=== PATIENT | female | born 1935 | race Caucasian/White ===

== ENCOUNTER 2022-09-10 12:51 | Inpatient (IN) | payer MEDICARE, OTHER ==
[~2022-09-10] VITALS: Ht 149.9 cm; Wt 54.4 kg
--- NOTE | 2022-09-10 13:00 | NUR ---
RECEIVED PT 87 YRS FEMALE AWAKE FALLOW COMAND FOR MEDICALE CLEAR FOR PSCHY awake fallow command
--- NOTE | 2022-09-10 13:30 | NUR ---
PT ON 5151 FOR GRAVELY DISABLE ADULT
--- NOTE | 2022-09-10 13:35 | NUR ---
PT AGATTADE UNCOOPRATIVE
--- NOTE | 2022-09-10 13:57 | NUR ---
BLOOD DROW BY LAB TACH
--- NOTE | 2022-09-10 13:58 | NUR ---
UA SENT TO LAB
--- NOTE | 2022-09-10 14:25 | NUR ---
RAZ BONILLA SENT TO LAB
[2022-09-10] MEDS ORDERED: HALOPERIDOL LACTATE INJ 5 MG/ML VIAL IM ONE (14:30)
[2022-09-10] MEDS ORDERED: LORAZEPAM INJ 2 MG/ML VIAL ONE (14:30)
[2022-09-10] MEDS ORDERED: LORAZEPAM INJ 2 MG/ML VIAL IM ONE (14:30)
[2022-09-10 14:33] LABS: BASOPHILS % (AUTO) 0.3 % (0.0-2.0); EOSINOPHILS % (AUTO) 2.2 % (0.0-6.0); HEMATOCRIT 40 % (33-45); HEMOGLOBIN 13.3 g/dL (11.5-14.8); LYMPHOCYTES # (AUTO) 1.9 K/uL (0.8-4.8); LYMPHOCYTES % (AUTO) 24.7 % (20.0-44.0); MEAN CORPUSCULAR HGB CONC 33 g/dl (31.0-36.0); MEAN CORPUSCULAR VOLUME 98 fL (82-100); MONOCYTES # (AUTO) 0.4 K/uL (0.1-1.30); MONOCYTES % (AUTO) 5.2 % (2.0-12.0); NEUTROPHILS # (AUTO) 5.2 K/uL (1.8-8.9); NEUTROPHILS % (AUTO) 67.6 % (43.0-81.0); PLATELET COUNT (AUTO) 324 K/uL (150-450); RED BLOOD CELL COUNT(AUTO) 4.09 MIL/uL (4.0-5.2); WHITE BLOOD COUNT (AUTO) 7.7 K/uL (4.3-11.0)
[2022-09-10] MEDS ORDERED: FLUT1BLS6 IH (14:44)
[2022-09-10] MEDS ORDERED: ALBU1.257 NEB (14:44)
[2022-09-10] MEDS ORDERED: DICL75TA5 PO (14:44)
[2022-09-10] MEDS ORDERED: CHOL100043 PO (14:44)
[2022-09-10] MEDS ORDERED: MULT-447 PO (14:44)
[2022-09-10] MEDS ORDERED: AMLO1CAP6 PO (14:44)
[2022-09-10] MEDS ORDERED: VITA1TAB56 PO (15:06)
[2022-09-10] MEDS ORDERED: ASPI-1169 PO (15:06)
[2022-09-10] MEDS ORDERED: TURM500C9 PO (15:06)
[2022-09-10] MEDS ORDERED: ZINC50TA39 PO (15:06)
[2022-09-10] MEDS ORDERED: ACET-2605 PO (15:06)
[2022-09-10] MEDS ORDERED: HYDR453.3 TP (15:06)
[2022-09-10] MEDS ORDERED: [UNRECOGNIZED DRUG - CODE] PO (15:06)
[2022-09-10] MEDS ORDERED: ONDA4TAB11 PO (15:06)
[2022-09-10] MEDS ORDERED: CALC1TAB30 PO (15:06)
[2022-09-10] MEDS ORDERED: GARL1TAB2 PO (15:06)
[2022-09-10] MEDS ORDERED: OMEG1CAP PO (15:06)
[2022-09-10] MEDS ORDERED: DICL100G26 TP (15:06)
[2022-09-10] MEDS ORDERED: PHEN26CR2 RC (15:06)
[2022-09-10] MEDS ORDERED: DESL5TAB PO (15:06)
[2022-09-10 15:13] LABS: ALBUMIN 3.7 g/dL (3.4-5.0); BILIRUBIN,DIRECT 0.1 mg/dL (0.0-0.2); BILIRUBIN,TOTAL 0.3 mg/dL (0.2-1.0); CALCIUM, SERUM 9.6 mg/dL (8.5-10.1); POTASSIUM 4.1 mmol/L (3.5-5.1); TOTAL PROTEIN, SERUM 7.1 g/dL (6.4-8.2)
[2022-09-10] MEDS ORDERED: ONDANSETRON 4 MG TAB.RAPDIS PO PRN ×2 (15:30→15:45)
[2022-09-10] MEDS ORDERED: ACETAMINOPHEN ES 500 MG TABLET PO PRN (15:30)
[2022-09-10] MEDS ORDERED: HYDROCORTISONE 2.5% CREAM 28.4 GM TUBE TP PRN ×2 (15:30→15:45)
--- NOTE | 2022-09-10 15:46 | NUR ---
ROOM 218 A
--- NOTE | 2022-09-10 16:21 | NUR ---
VS STABLE NO HOLT
--- NOTE | 2022-09-10 16:35 | NUR ---
HAND OFF MANNY. Marialuisa RN TO ROOM 218 A VIA [facility] ASLEEPY NO DISTRESS
--- NOTE | 2022-09-10 17:09 | NUR ---
RN-CO: Admitted an 87 year old female patient from [facility] who was brought by daughter Joanna to [facility] ED. Per hold patient is non compliant, aggressive and paranoid. She thinks that people are stealing from her. Upon face to face interview, she is alert to name, and date. She is angry with pressured speech. Her affect is is blunted and she denied being depressed and upset, however when she talks she is irritable. She refused to sign the admitting orders, staff screened her belongings from [facility]. Dr Encinas was notified and gave admitting orders. Tammy [facility] ENER[facility] RATER reconciled her home medications. Joanna her daughter [phone] is aware of her admission. Patient's rights were discussed to her and booklet was given. She was oriented to the unit and staff. Plan of care was initiated.
--- NOTE | 2022-09-10 17:19 | NUR ---
RN-CO: Patient was encouraged to use walker and to call for assist.
[2022-09-10 19:46] VITALS: BP 120/52
--- NOTE | 2022-09-10 20:55 | NUR ---
NURSE NOTE: OFFERED PT PNEUMONIA AND FLU VACCINE AND PT REFUSED AT THIS TIME.
[2022-09-11 08:00] VITALS: BP 137/78
[2022-09-11] MEDS: ZINC SULFATE 220 MG CAPSULE PO SCH (08:54)
[2022-09-11] MEDS: DICLOFENAC SODIUM 25 MG TABLET.DR PO SCH ×2 (08:54→17:26)
[2022-09-11] MEDS: VITAMIN B COMP W-C 1 TAB TABLET PO SCH (08:54)
[2022-09-11] MEDS: BENAZEPRIL HCL 20 MG TABLET PO SCH (08:55)
[2022-09-11] MEDS: CHOLECALCIFEROL 1,000 UNIT TABLET (VIT D3) PO SCH (08:55)
[2022-09-11] MEDS: CALCIUM CARB 250MG /VITAMIN D 1 UDTAB PO SCH (08:55)
[2022-09-11] MEDS: ASPIRIN 81 MG TAB.CHEW PO SCH (08:56)
[2022-09-11] MEDS: AMLODIPINE BESYLATE 5 MG TABLET PO SCH (08:56)
[2022-09-11] MEDS ORDERED: ASPIRIN 81 MG TAB.CHEW PO SCH (09:00)
[2022-09-11] MEDS ORDERED: TURMERIC ROOT EXTRACT PO SCH (09:00)
[2022-09-11] MEDS ORDERED: Medication Not On Formulary EA (Omega-3 Fatty Acids/Fish Oil (Fish Oil 1,000 Mg Capsule) PO SCH (09:00)
--- NOTE | 2022-09-11 14:22 | NUR ---
Treatment Plan: Pt refused to sign treatment plan and was suspicious.
--- NOTE | 2022-09-11 14:22 | NUR ---
SOTERO Clinical Notes: Pt placed on a 5150 hold for GD due to being aggressive at her assisted living. Patient currently resides at [facility] located at [address] [place] [address]; . SOTERO contacted [facility] medication care manager stated that pt is welcomed back when stable. She stated family will provide transportation. SOTERO will contact pt's daughter Joanna ([phone]) to discuss treatment/discharge plan. SOTERO will work with the MD, family, and pt to help coordinate appropriate discharge.
--- NOTE | 2022-09-11 14:22 | NUR ---
SOTERO Initial Discharge Plan: Patient currently resides at [facility] located at [address] [place] [address]; . SOTERO contacted [facility] childcare provider stated that pt is welcomed back when stable. She stated family will provide transportation. SOTERO will contact pt's daughter Joanna ([phone]) to discuss treatment/discharge plan. SOTERO will work with the MD, family, and pt to help coordinate appropriate discharge.
--- NOTE | 2022-09-11 15:49 | NUR ---
SOTERO Family Contact: SOTERO contacted pt's daughter Joanna ([phone]) who stated that she is the DPOA and will Email this global technical writer the document. She stated that she would want pt back to [facility]. She stated that has been refusing her medications at [facility] and has days where she is in a manic state. SOTERO explained pt's treatment and discharge plan. Daughter stated that pt is on herbs and vitamins she reported she will Email me a list of the vitamins and herbs. SOTERO will inform nurse when received. SOTERO explained that this global technical writer receives Emails at a later time she stated it is fine and this global technical writer can let the nurse know by tomorrow.
[2022-09-11 16:00] VITALS: BP 121/59
[2022-09-11 20:41] VITALS: BP 110/57
[2022-09-11] MEDS: OLANZAPINE 2.5 MG TABLET PO SCH (21:28)
[2022-09-12 08:00] VITALS: BP 145/71
[2022-09-12] MEDS: AMLODIPINE BESYLATE 5 MG TABLET PO SCH (08:57)
[2022-09-12] MEDS: cetrizine 10 MG TABLET PO SCH (08:58)
[2022-09-12] MEDS: ASPIRIN 81 MG TAB.CHEW PO SCH (08:58)
[2022-09-12] MEDS: ZINC SULFATE 220 MG CAPSULE PO SCH (08:58)
[2022-09-12] MEDS: DICLOFENAC SODIUM 25 MG TABLET.DR PO SCH ×2 (08:59→17:24)
[2022-09-12] MEDS: CHOLECALCIFEROL 1,000 UNIT TABLET (VIT D3) PO SCH (08:59)
[2022-09-12] MEDS: VITAMIN B COMP W-C 1 TAB TABLET PO SCH (09:00)
[2022-09-12] MEDS: BENAZEPRIL HCL 20 MG TABLET PO SCH (09:00)
[2022-09-12] MEDS: CALCIUM CARB 250MG /VITAMIN D 1 UDTAB PO SCH (09:00)
[2022-09-12 16:00] VITALS: BP 129/75
[2022-09-12 20:33] VITALS: BP 105/51
[2022-09-12] MEDS: OLANZAPINE 2.5 MG TABLET PO SCH ×3 (21:02→22:03)
[2022-09-13 08:00] VITALS: BP 114/64
[2022-09-13] MEDS: ZINC SULFATE 220 MG CAPSULE PO SCH (09:01)
[2022-09-13] MEDS: CHOLECALCIFEROL 1,000 UNIT TABLET (VIT D3) PO SCH (09:01)
[2022-09-13] MEDS: BENAZEPRIL HCL 20 MG TABLET PO SCH (09:02)
[2022-09-13] MEDS: ASPIRIN 81 MG TAB.CHEW PO SCH (09:02)
[2022-09-13] MEDS: DICLOFENAC SODIUM 25 MG TABLET.DR PO SCH ×2 (09:03→16:44)
[2022-09-13] MEDS: AMLODIPINE BESYLATE 5 MG TABLET PO SCH (09:04)
[2022-09-13] MEDS: VITAMIN B COMP W-C 1 TAB TABLET PO SCH (09:04)
[2022-09-13] MEDS: LORATADINE 10 MG TABLET PO SCH (09:04)
[2022-09-13] MEDS: cetrizine 10 MG TABLET PO SCH (09:04)
[2022-09-13] MEDS: CALCIUM CARB 250MG /VITAMIN D 1 UDTAB PO SCH (09:08)
[2022-09-13 16:00] VITALS: BP 117/65
--- NOTE | 2022-09-13 19:51 | NUR ---
RN NOTES: RECEIVED PATIENT IN BED RESTING COMFORTABLY. A/OX2. NO S/SX OF ACUTE DISTRESS NOTED. PATIENT IS CALM UPON APPROACH, COOPERATIVE TO CARE, GUARDED, ISOLATIVE, MODERATE ASSISTANCE WITH ADL'S PROVIDED. SAFETY PRECAUTIONS PROVIDED, VERBALIZATION OF FEELINGS ENCOURAGED. SAFETY PRECAUTIONS MAINTAINED. WILL CONTINUE TO MONITOR Q15MIN ROUNDS FOR SAFETY AND BEHAVIOR.
[2022-09-13 20:59] VITALS: BP 140/70
[2022-09-13] MEDS: OLANZAPINE 2.5 MG TABLET PO SCH (21:30)
[2022-09-14 08:00] VITALS: BP 141/65
[2022-09-14] MEDS: LORATADINE 10 MG TABLET PO SCH (08:13)
[2022-09-14] MEDS: CHOLECALCIFEROL 1,000 UNIT TABLET (VIT D3) PO SCH (08:14)
[2022-09-14] MEDS: DICLOFENAC SODIUM 25 MG TABLET.DR PO SCH ×2 (08:14→17:39)
[2022-09-14] MEDS: CALCIUM CARB 250MG /VITAMIN D 1 UDTAB PO SCH (08:14)
[2022-09-14] MEDS: cetrizine 10 MG TABLET PO SCH (08:14)
[2022-09-14] MEDS: VITAMIN B COMP W-C 1 TAB TABLET PO SCH (08:14)
[2022-09-14] MEDS: ASPIRIN 81 MG TAB.CHEW PO SCH (08:14)
[2022-09-14] MEDS: AMLODIPINE BESYLATE 5 MG TABLET PO SCH (08:15)
[2022-09-14] MEDS: ZINC SULFATE 220 MG CAPSULE PO SCH (08:15)
[2022-09-14] MEDS: BENAZEPRIL HCL 20 MG TABLET PO SCH (08:15)
--- NOTE | 2022-09-14 08:16 | NUR ---
DPOA Document: Pt's daughter Joanna ([phone]) is DPOA and this signwriter placed in the chart.
--- NOTE | 2022-09-14 10:27 | NUR ---
Court Notification: SW notified pt's daughter Joanna ([phone]) of 5250 hearing.
--- NOTE | 2022-09-14 10:27 | NUR ---
Court Hearing: Patient's court hearing for 2160 was today and it was upheld for GD.
[2022-09-14 16:00] VITALS: BP 120/72
[2022-09-14 20:46] VITALS: BP 140/70
[2022-09-14] MEDS: OLANZAPINE 2.5 MG TABLET PO SCH (21:01)
[2022-09-15 08:00] VITALS: BP_SYST 127; BP_SYST 137; BP_DIAS 66; BP_DIAS 71
[2022-09-15] MEDS: ASPIRIN 81 MG TAB.CHEW PO SCH (08:01)
[2022-09-15] MEDS: cetrizine 10 MG TABLET PO SCH (08:03)
[2022-09-15] MEDS: VITAMIN B COMP W-C 1 TAB TABLET PO SCH (08:03)
[2022-09-15] MEDS: CHOLECALCIFEROL 1,000 UNIT TABLET (VIT D3) PO SCH (08:03)
[2022-09-15] MEDS: CALCIUM CARB 250MG /VITAMIN D 1 UDTAB PO SCH (08:03)
[2022-09-15] MEDS: ZINC SULFATE 220 MG CAPSULE PO SCH (08:03)
[2022-09-15] MEDS: DICLOFENAC SODIUM 25 MG TABLET.DR PO SCH ×2 (08:03→16:03)
[2022-09-15] MEDS: BENAZEPRIL HCL 20 MG TABLET PO SCH (08:04)
[2022-09-15] MEDS: AMLODIPINE BESYLATE 5 MG TABLET PO SCH (08:04)
[2022-09-15] MEDS: LORATADINE 10 MG TABLET PO SCH (08:04)
--- NOTE | 2022-09-15 09:31 | NUR ---
RN NOtes: Received pt. asleep in bed, breathing is even and unlabored. Ate 100% for breakfast and compliant on meds. Pt. is very pleasant upon approached. Encouraged to verbalize feelings and motivated to attend group activity. Needs attended and will continue to monitor for safety.
[2022-09-15 16:00] VITALS: BP 147/70
--- NOTE | 2022-09-15 19:52 | NUR ---
RN NOTES: RECEIVED PATIENT IN BED RESTING COMFORTABLY . A/OX2. NO S/SX OF ACUTE DISTRESS NOTED. PATIENT IS CALM UPON APPROACH, COOPERATIVE TO CARE, GUARDED, ISOLATIVE, MODERATE ASSISTANCE WITH ADL'S PROVIDED. SAFETY PRECAUTIONS PROVIDED, VERBALIZATION OF FEELINGS ENCOURAGED. SAFETY PRECAUTIONS MAINTAINED. WILL CONTINUE TO MONITOR Q15MIN ROUNDS FOR SAFETY AND BEHAVIOR.
[2022-09-15 20:42] VITALS: BP 123/62
[2022-09-15] MEDS: OLANZAPINE 2.5 MG TABLET PO SCH (21:13)
[2022-09-16 08:00] VITALS: BP 140/70
[2022-09-16] MEDS: ASPIRIN 81 MG TAB.CHEW PO SCH (08:10)
[2022-09-16] MEDS: DICLOFENAC SODIUM 25 MG TABLET.DR PO SCH ×2 (08:10→16:06)
[2022-09-16] MEDS: OLANZAPINE 2.5 MG TABLET PO SCH ×2 (08:10→16:06)
[2022-09-16] MEDS: CHOLECALCIFEROL 1,000 UNIT TABLET (VIT D3) PO SCH (08:11)
[2022-09-16] MEDS: LORATADINE 10 MG TABLET PO SCH (08:11)
[2022-09-16] MEDS: cetrizine 10 MG TABLET PO SCH (08:11)
[2022-09-16] MEDS: VITAMIN B COMP W-C 1 TAB TABLET PO SCH (08:11)
[2022-09-16] MEDS: ZINC SULFATE 220 MG CAPSULE PO SCH (08:11)
[2022-09-16] MEDS: CALCIUM CARB 250MG /VITAMIN D 1 UDTAB PO SCH (08:11)
[2022-09-16] MEDS: AMLODIPINE BESYLATE 5 MG TABLET PO SCH (08:12)
[2022-09-16] MEDS: BENAZEPRIL HCL 20 MG TABLET PO SCH (08:13)
--- NOTE | 2022-09-16 09:51 | NUR ---
RN-CO: Patient in her room, pleasant to staff, took her medications and ate breakfast. Encouraged her to ventilate her feelings and assisted her to care.
[2022-09-16 16:00] VITALS: BP 122/58
[2022-09-16 20:27] VITALS: BP 128/65
[2022-09-16] MEDS: ACETAMINOPHEN ES 500 MG TABLET PO PRN (22:32)
[2022-09-17 08:00] VITALS: BP 113/56
[2022-09-17] MEDS: CHOLECALCIFEROL 1,000 UNIT TABLET (VIT D3) PO SCH (08:24)
[2022-09-17] MEDS: OLANZAPINE 2.5 MG TABLET PO SCH ×2 (08:24→17:03)
[2022-09-17] MEDS: BENAZEPRIL HCL 20 MG TABLET PO SCH (08:25)
[2022-09-17] MEDS: AMLODIPINE BESYLATE 5 MG TABLET PO SCH (08:25)
[2022-09-17] MEDS: VITAMIN B COMP W-C 1 TAB TABLET PO SCH (08:25)
[2022-09-17] MEDS: ASPIRIN 81 MG TAB.CHEW PO SCH (08:26)
[2022-09-17] MEDS: LORATADINE 10 MG TABLET PO SCH (08:26)
[2022-09-17] MEDS: ZINC SULFATE 220 MG CAPSULE PO SCH (08:26)
[2022-09-17] MEDS: CALCIUM CARB 250MG /VITAMIN D 1 UDTAB PO SCH (08:26)
[2022-09-17] MEDS: cetrizine 10 MG TABLET PO SCH (08:26)
[2022-09-17] MEDS: DICLOFENAC SODIUM 25 MG TABLET.DR PO SCH ×2 (08:27→17:03)
[2022-09-17 16:00] VITALS: BP 113/70
[2022-09-17 20:27] VITALS: BP 139/72
[2022-09-17] MEDS: ACETAMINOPHEN ES 500 MG TABLET PO PRN (23:53)
--- NOTE | 2022-09-17 23:55 | NUR ---
HEADACHE Patient in bed, c/o headache, denies dizziness, no N/V. Given Tylenol, will reassess pain.
--- NOTE | 2022-09-18 06:35 | NUR ---
END OF SHIFT REPORT Patient in bed sleeping aroused easily. Hours of sleep 7. Headache improved with Tylenol. Calm, no agitated behavior during the shift. Compliant with medication. Plan for continue inpatient [facility] hospitalization, Behavior management per Psychiatry. Will endorse to oncoming RN.
[2022-09-18 08:00] VITALS: BP 126/62
[2022-09-18] MEDS: ASPIRIN 81 MG TAB.CHEW PO SCH (09:09)
[2022-09-18] MEDS: DICLOFENAC SODIUM 25 MG TABLET.DR PO SCH ×2 (09:09→17:09)
[2022-09-18] MEDS: AMLODIPINE BESYLATE 5 MG TABLET PO SCH (09:09)
[2022-09-18] MEDS: BENAZEPRIL HCL 20 MG TABLET PO SCH (09:10)
[2022-09-18] MEDS: ZINC SULFATE 220 MG CAPSULE PO SCH (09:10)
[2022-09-18] MEDS: CALCIUM CARB 250MG /VITAMIN D 1 UDTAB PO SCH (09:10)
[2022-09-18] MEDS: VITAMIN B COMP W-C 1 TAB TABLET PO SCH (09:10)
[2022-09-18] MEDS: cetrizine 10 MG TABLET PO SCH (09:11)
[2022-09-18] MEDS: LORATADINE 10 MG TABLET PO SCH (09:11)
[2022-09-18] MEDS: OLANZAPINE 2.5 MG TABLET PO SCH ×2 (09:11→17:09)
[2022-09-18] MEDS: CHOLECALCIFEROL 1,000 UNIT TABLET (VIT D3) PO SCH (09:26)
--- NOTE | 2022-09-18 11:46 | NUR ---
SOTERO Family Contact: SW contacted pt's daughter Joanna ([phone]) and discussed pt's placement. SW stated that pt is concerned and does not want to go back to [facility]. SW recommended nursing facility and she is agreeable.
--- NOTE | 2022-09-18 11:47 | NUR ---
SNF Referral: SOTERO sent clinicals to Rena ([phone]) to [facility] for placement. SOTERO sent H & P, progress notes, and medication list.
--- NOTE | 2022-09-18 14:02 | NUR ---
SNF Contact: SW received a call from Pearl perales from [facility] ([phone]) and stated pt is accepted.
[2022-09-18 16:32] VITALS: BP 149/84
[2022-09-18 20:43] VITALS: BP 137/67
[2022-09-18] MEDS: DIVALPROEX SODIUM 125 MG TABLET.DR PO SCH (20:50)
[2022-09-19 08:00] VITALS: BP 139/72
[2022-09-19] MEDS: CALCIUM CARB 250MG /VITAMIN D 1 UDTAB PO SCH (09:10)
[2022-09-19] MEDS: BENAZEPRIL HCL 20 MG TABLET PO SCH (09:11)
[2022-09-19] MEDS: AMLODIPINE BESYLATE 5 MG TABLET PO SCH (09:11)
[2022-09-19] MEDS: CHOLECALCIFEROL 1,000 UNIT TABLET (VIT D3) PO SCH (09:11)
[2022-09-19] MEDS: DIVALPROEX SODIUM 125 MG TABLET.DR PO SCH ×2 (09:11→21:51)
[2022-09-19] MEDS: ZINC SULFATE 220 MG CAPSULE PO SCH (09:12)
[2022-09-19] MEDS: cetrizine 10 MG TABLET PO SCH (09:12)
[2022-09-19] MEDS: LORATADINE 10 MG TABLET PO SCH (09:12)
[2022-09-19] MEDS: VITAMIN B COMP W-C 1 TAB TABLET PO SCH (09:12)
[2022-09-19] MEDS: ASPIRIN 81 MG TAB.CHEW PO SCH (09:12)
[2022-09-19] MEDS: OLANZAPINE 2.5 MG TABLET PO SCH ×2 (09:12→21:50)
[2022-09-19] MEDS: DICLOFENAC SODIUM 25 MG TABLET.DR PO SCH ×2 (09:12→16:31)
[2022-09-19 16:00] VITALS: BP 137/72
--- NOTE | 2022-09-19 18:49 | NUR ---
RN- NOTES PATIENT RECEIVED AWAKE IN BED, BREATHING EVEN AND UNLABORED WITH NO S/S OF DISTRESS. PATIENT IS GUARDED, ANXIOUS, BUT PLEASANT WITH STAFF. INITIATES INTERACTIONS WHEN ENTERING ROOM, AND IS VERY GOAL ORIENTED. PATIENT IS AMBULATORY USING A WALKER INDEPENDENTLY. PATIENT WALKING THE HALLWAYS AND DINING ROOM. COMPLIANT WITH ALL MEDICATIONS. DENIES SI/HI AT THIS TIME. WILL CONTINUE TO MONITOR Q 15 MINUTES FOR SAFETY AND BEHAVIOR.
[2022-09-19 20:00] VITALS: BP 137/68
[2022-09-19 20:36] VITALS: BP 131/68
[2022-09-19] MEDS: ACETAMINOPHEN ES 500 MG TABLET PO PRN (20:37)
--- NOTE | 2022-09-19 20:37 | NUR ---
RN notes Pt is complaining of mild pain on L hand and requesting tylenol. administered tylenol/po/prn as ordered for mild pain. safety precautions is maintained. Will continue to monitor.
[2022-09-20 08:00] VITALS: BP 132/56
[2022-09-20] MEDS: CALCIUM CARB 250MG /VITAMIN D 1 UDTAB PO SCH (08:28)
[2022-09-20] MEDS: CHOLECALCIFEROL 1,000 UNIT TABLET (VIT D3) PO SCH (08:28)
[2022-09-20] MEDS: cetrizine 10 MG TABLET PO SCH (08:29)
[2022-09-20] MEDS: LORATADINE 10 MG TABLET PO SCH (08:29)
[2022-09-20] MEDS: ASPIRIN 81 MG TAB.CHEW PO SCH (08:29)
[2022-09-20] MEDS: DICLOFENAC SODIUM 25 MG TABLET.DR PO SCH ×2 (08:29→17:29)
[2022-09-20] MEDS: DIVALPROEX SODIUM 125 MG TABLET.DR PO SCH ×2 (08:29→20:35)
[2022-09-20] MEDS: ZINC SULFATE 220 MG CAPSULE PO SCH (08:29)
[2022-09-20] MEDS: VITAMIN B COMP W-C 1 TAB TABLET PO SCH (08:29)
[2022-09-20] MEDS: AMLODIPINE BESYLATE 5 MG TABLET PO SCH (08:30)
[2022-09-20] MEDS: BENAZEPRIL HCL 20 MG TABLET PO SCH (08:30)
--- NOTE | 2022-09-20 08:35 | NUR ---
SOTERO Family Contact: SOTERO contacted pt's daughter Joanna ([phone]) and notified that she got accepted at [facility].
[2022-09-20 16:00] VITALS: BP 123/65
--- NOTE | 2022-09-20 20:08 | NUR ---
RN NOTES: RECEIVED PATIENT IN BED RESTING COMFORTABLY . A/OX2. NO S/SX OF ACUTE DISTRESS NOTED. PATIENT IS CALM UPON APPROACH, COOPERATIVE TO CARE, GUARDED,, SAFETY PRECAUTIONS PROVIDED, VERBALIZATION OF FEELINGS ENCOURAGED. SAFETY PRECAUTIONS MAINTAINED. WILL CONTINUE TO MONITOR Q15MIN ROUNDS FOR SAFETY AND BEHAVIOR.
[2022-09-20 20:29] VITALS: BP 144/76
[2022-09-20] MEDS: OLANZAPINE 2.5 MG TABLET PO SCH (21:27)
[2022-09-20] MEDS: ACETAMINOPHEN ES 500 MG TABLET PO PRN (23:44)
--- NOTE | 2022-09-20 23:46 | NUR ---
RN notes Pt is complaining of pain on L arm and requesting tylenol. administered tylenol/po/prn as ordered for pain. safety precautions is maintained. Primary nurse MICHAELA Park is aware and informed.
[2022-09-21 08:00] VITALS: BP 119/86
[2022-09-21] MEDS: CHOLECALCIFEROL 1,000 UNIT TABLET (VIT D3) PO SCH (08:27)
[2022-09-21] MEDS: CALCIUM CARB 250MG /VITAMIN D 1 UDTAB PO SCH (08:27)
[2022-09-21] MEDS: VITAMIN B COMP W-C 1 TAB TABLET PO SCH (08:27)
[2022-09-21] MEDS: ASPIRIN 81 MG TAB.CHEW PO SCH (08:27)
[2022-09-21] MEDS: cetrizine 10 MG TABLET PO SCH (08:28)
[2022-09-21] MEDS: DIVALPROEX SODIUM 125 MG TABLET.DR PO SCH ×2 (08:28→20:11)
[2022-09-21] MEDS: LORATADINE 10 MG TABLET PO SCH (08:28)
[2022-09-21] MEDS: DICLOFENAC SODIUM 25 MG TABLET.DR PO SCH ×2 (08:28→16:44)
[2022-09-21] MEDS: ZINC SULFATE 220 MG CAPSULE PO SCH (08:28)
[2022-09-21] MEDS: BENAZEPRIL HCL 20 MG TABLET PO SCH (08:29)
[2022-09-21] MEDS: AMLODIPINE BESYLATE 5 MG TABLET PO SCH (08:30)
[2022-09-21 16:00] VITALS: BP 139/70
--- NOTE | 2022-09-21 18:08 | NUR ---
GPS RN CLOSING NOTE PATIENT AWAKE, WALKING AROUND STEADY WITH HER WALKER, ALERT AND ORIENTED X2-3, STABLE MOOD, COOPERATIVE, STABLE ON ROOM AIR, BREATHING EVENLY AND NO RESPIRATORY DISTRESS NOTED; L ARM PAIN IS CONTROLLED - DECREASING FROM 10/22. PATIENT COMPLIANT WITH ALL MEDS GIVEN. ALL NEEDS MET, ALL DUE MEDS GIVEN. SAFETY MEASURES MAINTAINED:BED IN LOWEST AND LOCKED POSITION, SIDE RAILS UP X 2, CALL LIGHT WITHIN REACH. WILL ENDORSE TO TRAINING AND DEVELOPMENT OFFICER NURSE.
[2022-09-21] MEDS: ACETAMINOPHEN ES 500 MG TABLET PO PRN (18:12)
--- NOTE | 2022-09-21 18:19 | NUR ---
RN NOTES - PATIENT COMPLAINED OF INCREASED PAIN OF 7/10 ON L ARM, REQUESTED FOR TYLENOL, GIVEN 1000 MG ORDERED, WILL CONTINUE TO MONITOR.
--- NOTE | 2022-09-21 20:00 | NUR ---
RN NOTES: RECEIVED PATIENT IN BED RESTING COMFORTABLY . A/OX2. NO S/SX OF ACUTE DISTRESS NOTED. PATIENT IS CALM UPON APPROACH, COOPERATIVE TO CARE, GUARDED, ISOLATIVE, DISORGNIZED,FORGETFUL MODERATE ASSISTANCE WITH ADL'S PROVIDED. SAFETY PRECAUTIONS PROVIDED, VERBALIZATION OF FEELINGS ENCOURAGED. SAFETY PRECAUTIONS MAINTAINED. WILL CONTINUE TO MONITOR Q15MIN ROUNDS FOR SAFETY AND BEHAVIOR.
[2022-09-21 20:44] VITALS: BP 109/60
[2022-09-21] MEDS: OLANZAPINE 2.5 MG TABLET PO SCH (21:26)
--- NOTE | 2022-09-22 07:18 | NUR ---
CUSTOM CLOTHIER OPENING NOTE RECEIVED PT ASLEEP IN BED, EASILY AROUSED. PT IS A/O X3 cooperative. PT ON ROOM AIR, TOLERATING WELL. NO SOB NOTED. NOT IN ANY SIGN OF RESPIRATORY DISTRESS. SAFETY MEASURES IN PLACE: BED IN LOWEST AND LOCKED POSITION, SIDE RAILS UP, BED ALARM ON, AND CALL LIGHT WITHIN EASY REACH. WILL CONTINUE TO MONITOR PT.
[2022-09-22 08:00] VITALS: BP 126/70
[2022-09-22] MEDS: LORATADINE 10 MG TABLET PO SCH (08:20)
[2022-09-22] MEDS: DIVALPROEX SODIUM 125 MG TABLET.DR PO SCH ×2 (08:21→20:39)
[2022-09-22] MEDS: VITAMIN B COMP W-C 1 TAB TABLET PO SCH (08:22)
[2022-09-22] MEDS: DICLOFENAC SODIUM 25 MG TABLET.DR PO SCH ×2 (08:22→16:12)
[2022-09-22] MEDS: CALCIUM CARB 250MG /VITAMIN D 1 UDTAB PO SCH (08:22)
[2022-09-22] MEDS: ASPIRIN 81 MG TAB.CHEW PO SCH (08:22)
[2022-09-22] MEDS: BENAZEPRIL HCL 20 MG TABLET PO SCH (08:23)
[2022-09-22] MEDS: CHOLECALCIFEROL 1,000 UNIT TABLET (VIT D3) PO SCH (08:23)
[2022-09-22] MEDS: cetrizine 10 MG TABLET PO SCH (08:23)
[2022-09-22] MEDS: ZINC SULFATE 220 MG CAPSULE PO SCH (08:23)
[2022-09-22] MEDS: AMLODIPINE BESYLATE 5 MG TABLET PO SCH (08:24)
[2022-09-22 16:00] VITALS: BP 146/69
--- NOTE | 2022-09-22 19:41 | NUR ---
RN NOTES: PATIENT WATCHING TV IN ACTIVITY ROOM . A/OX2. NO S/SX OF ACUTE DISTRESS NOTED. PATIENT IS CALM UPON APPROACH, COOPERATIVE TO CARE, GUARDED, DISORGNIZED,FORGETFUL MODERATE ASSISTANCE WITH ADL'S PROVIDED. SAFETY PRECAUTIONS PROVIDED, VERBALIZATION OF FEELINGS ENCOURAGED. SAFETY PRECAUTIONS MAINTAINED. WILL CONTINUE TO MONITOR Q15MIN ROUNDS FOR SAFETY AND BEHAVIOR.
[2022-09-22 21:16] VITALS: BP 145/74
[2022-09-22] MEDS: OLANZAPINE 2.5 MG TABLET PO SCH (21:17)
[2022-09-23 07:08] LABS: CREATININE 0.9 mg/dL (0.6-1.3); MAGNESIUM 2.3 mg/dL (1.8-2.4)
[2022-09-23 08:00] VITALS: BP 126/72
[2022-09-23] MEDS: CALCIUM CARB 250MG /VITAMIN D 1 UDTAB PO SCH (08:33)
[2022-09-23] MEDS: AMLODIPINE BESYLATE 5 MG TABLET PO SCH (08:33)
[2022-09-23] MEDS: CHOLECALCIFEROL 1,000 UNIT TABLET (VIT D3) PO SCH (08:34)
[2022-09-23] MEDS: ZINC SULFATE 220 MG CAPSULE PO SCH (08:34)
[2022-09-23] MEDS: ASPIRIN 81 MG TAB.CHEW PO SCH (08:34)
[2022-09-23] MEDS: cetrizine 10 MG TABLET PO SCH (08:34)
[2022-09-23] MEDS: DICLOFENAC SODIUM 25 MG TABLET.DR PO SCH ×2 (08:34→16:47)
[2022-09-23] MEDS: LORATADINE 10 MG TABLET PO SCH (08:34)
[2022-09-23] MEDS: VITAMIN B COMP W-C 1 TAB TABLET PO SCH (08:34)
[2022-09-23] MEDS: BENAZEPRIL HCL 20 MG TABLET PO SCH (08:34)
[2022-09-23] MEDS: DIVALPROEX SODIUM 125 MG TABLET.DR PO SCH ×2 (08:35→21:40)
[2022-09-23] MEDS: ACETAMINOPHEN ES 500 MG TABLET PO PRN ×2 (13:20→21:40)
[2022-09-23 16:00] VITALS: BP 122/62
[2022-09-23 20:32] VITALS: BP 138/78
[2022-09-23] MEDS: OLANZAPINE 2.5 MG TABLET PO SCH (21:40)
--- NOTE | 2022-09-23 22:00 | NUR ---
RN NOTE PATIENT DECLINED HAVING SKIN ASSESSMENT PICTURES TAKEN. WILL ENCOURAGE PATIENT TO HAVE PICTURES TAKEN AGAIN IN A.M. PATIENT O/W STABLE; WILL CONTINUE TO MONITOR PATIENT.
[2022-09-24 08:00] VITALS: BP 144/73
[2022-09-24] MEDS: ZINC SULFATE 220 MG CAPSULE PO SCH (08:05)
[2022-09-24] MEDS: LORATADINE 10 MG TABLET PO SCH (08:05)
[2022-09-24] MEDS: DICLOFENAC SODIUM 25 MG TABLET.DR PO SCH (08:06)
[2022-09-24] MEDS: CHOLECALCIFEROL 1,000 UNIT TABLET (VIT D3) PO SCH (08:09)
[2022-09-24] MEDS: CALCIUM CARB 250MG /VITAMIN D 1 UDTAB PO SCH (08:10)
[2022-09-24] MEDS: VITAMIN B COMP W-C 1 TAB TABLET PO SCH (08:11)
[2022-09-24] MEDS: ASPIRIN 81 MG TAB.CHEW PO SCH (08:11)
[2022-09-24] MEDS: DIVALPROEX SODIUM 125 MG TABLET.DR PO SCH (08:13)
[2022-09-24 08:14] VITALS: BP 126/72
[2022-09-24] MEDS: BENAZEPRIL HCL 20 MG TABLET PO SCH (08:14)
[2022-09-24] MEDS: AMLODIPINE BESYLATE 5 MG TABLET PO SCH (08:14)
--- NOTE | 2022-09-24 08:21 | NUR ---
SW Discharge Note: Patient will be discharged to [facility] [address] [facility], [place] [address] ([phone]). Please arrange ambulance transportation at 1PM. Spoke with Pearl, Admin Coordinator at the facility who states they are ready to accept the patient today. Patients DPOA daughter Joanna ([phone]) is aware and agreeable. Patient is alert and oriented x3, is unable to plan for self-care at this time, however, is willing to accept care at [facility]. Patient denies any suicidal or homicidal ideation. Patient will continue to follow-up with (Psychiatrist) Dr. Encinas [address] [facility] [address], [place] [address]; ([phone]) Dr. Cheng [address] [facility] [address], [place] [address]; ([phone]). Patient presents with euthymic mood and congruent affect.
[2022-09-24] MEDS: cetrizine 10 MG TABLET PO SCH (08:39)
--- NOTE | 2022-09-24 12:17 | NUR ---
RN NOTES: CALLED [facility] TO GIVE REPORTS, PER [facility] STAFF, ADMITTING RN WILL CALL BACK, GPS RN PROVIDED NAME AND CONTACT NUMBER.
--- NOTE | 2022-09-24 13:42 | NUR ---
TARGET DEVELOPER NOTES: DC INSTRUCTIONS DISCUSSED WITH PT, REFUSED TO SIGN. ALL BELONGINGS ALL ACCOUNTED FOR, JEWELRY GIVEN TO PT, WITNESSED BY ANOTHER GPS STAFF, BELONGINGS LIST SIGNED BY PT. ID BAND REMOVED. REPORT GIVEN TO MICHAELA ORTEGA FROM [facility] VIA PHONE. PT LEFT UNIT VIA [facility] TRANSPORTATION, RUN #[id number]
== END 2022-09-24 13:30 | DRG 885 ==
LOC: ER 13:10 → GPS 17:01
PROVIDERS: ADMIT Nurse Practitioner Psychiatric/Mental Health; ATTEND Nurse Practitioner Family
DX: F39 Unspecified mood [affective] disorder (principal); G93.41 Metabolic encephalopathy; G93.40 Encephalopathy, unspecified; F03.92 Unspecified dementia, unspecified severity, with psychotic disturbance; F03.93 Unspecified dementia, unspecified severity, with mood disturbance; F03.94 Unspecified dementia, unspecified severity, with anxiety; F29 Unspecified psychosis not due to a substance or known physiological condition; J45.909 Unspecified asthma, uncomplicated; Z86.73 Personal history of transient ischemic attack (TIA), and cerebral infarction without residual deficits; I10 Essential (primary) hypertension; Z91.14 Patient's other noncompliance with medication regimen; Z91.199 Patient's noncompliance with other medical treatment and regimen due to unspecified reason; K46.9 Unspecified abdominal hernia without obstruction or gangrene; Z79.82 Long term (current) use of aspirin; Z79.899 Other long term (current) drug therapy; Z79.51 Long term (current) use of inhaled steroids; Z73.6 Limitation of activities due to disability; E78.5 Hyperlipidemia, unspecified; R26.9 Unspecified abnormalities of gait and mobility; R45.1 Restlessness and agitation; M19.90 Unspecified osteoarthritis, unspecified site
CPT/HCPCS: 36415; 80048-TC; 80076-TC; 80164-TC; 83735-TC; 85025-TC; 87081-TC; C9803; G0480; J2060

== ENCOUNTER 2022-12-04 13:19 | Inpatient (IN) | payer MEDICARE, OTHER ==
[~2022-12-04] VITALS: Ht 149.9 cm; Wt 38.6 kg
[~2022-12-04 13:19] MED LIST: ACET-2605 PO; ALBU1.257 NEB; AMLO1CAP6 PO; ASPI-1169 PO; CALC1TAB30 PO; CHOL100043 PO; DESL5TAB PO; DICL100G26 TP; DICL75TA5 PO; FLUT1BLS6 IH; GARL1TAB2 PO; HYDR453.3 TP; OMEG1CAP PO; ONDA4TAB11 PO; PHEN26CR2 RC; TURM500C9 PO; VITA1TAB56 PO; ZINC50TA39 PO; [UNRECOGNIZED DRUG - CODE] PO
--- NOTE | 2022-12-04 14:20 | NUR ---
pt in bed comfortable. Seen by MD. Urine collected and sent
[2022-12-04 14:27] LABS: BASOPHILS % (AUTO) 0.5 % (0.0-2.0); HEMATOCRIT 37 % (33-45); HEMOGLOBIN 12.4 g/dL (11.5-14.8); LYMPHOCYTES # (AUTO) 1.8 K/uL (0.8-4.8); MEAN CORPUSCULAR HGB CONC 34 g/dl (31.0-36.0); MEAN CORPUSCULAR VOLUME 96 fL (82-100); MONOCYTES # (AUTO) 0.8 K/uL (0.1-1.30); MONOCYTES % (AUTO) 10.8 % (2.0-12.0); NEUTROPHILS # (AUTO) 4.5 K/uL (1.8-8.9); NEUTROPHILS % (AUTO) 60.7 % (43.0-81.0); PLATELET COUNT (AUTO) 305 K/uL (150-450); RED BLOOD CELL COUNT(AUTO) 3.86 MIL/uL (4.0-5.2); WHITE BLOOD COUNT (AUTO) 7.4 K/uL (4.3-11.0)
[2022-12-04 14:28] LABS: CALCIUM, SERUM 9.5 mg/dL (8.5-10.1); CARBON DIOXIDE 28 mmol/L (21-32); CHLORIDE 108 mmol/L (98-107); CREATININE 0.8 mg/dL (0.6-1.3); GLUCOSE 101 mg/dL (74-106); POTASSIUM 4.7 mmol/L (3.5-5.1); SODIUM SERUM 144 mmol/L (136-145); UREA NITROGEN, BLOOD 19 mg/dL (7-18)
[2022-12-04 14:34] LABS: ALANINE AMINOTRANSFERASE 38 U/L (12-78); ALBUMIN 3.4 g/dL (3.4-5.0); ALCOHOL, BLOOD < 3 mg/dL (0-0); ALKALINE PHOSPHATASE 106 U/L (46-116); ASPARTATE AMINOTRANSFERASE 20 U/L (15-37); BILIRUBIN,DIRECT 0.1 mg/dL (0.0-0.2); BILIRUBIN,TOTAL 0.3 mg/dL (0.2-1.0); TOTAL PROTEIN, SERUM 7.1 g/dL (6.4-8.2)
[2022-12-04 14:42] LABS: BILIRUBIN,URINE NEGATIVE (NEGATIVE); COLOR,URINE YELLOW (YELLOW); LEUKOCYTE ESTERASE ,URINE NEGATIVE (NEGATIVE); NITRITE, URINE NEGATIVE (NEGATIVE); PROTEIN,URINE NEGATIVE (NEGATIVE); UGLUCOSE NEGATIVE (NEGATIVE); UROBILINOGEN,URINE 0.2 EU/dL (0.2)
[2022-12-04] MEDS ORDERED: LORA-259 PO (15:16)
[2022-12-04] MEDS ORDERED: AMLO-212 PO (15:16)
[2022-12-04] MEDS ORDERED: DOCU-141 PO (15:16)
[2022-12-04] MEDS ORDERED: GUAI100S11 PO (15:16)
[2022-12-04] MEDS ORDERED: DIVA125C5 PO (15:16)
[2022-12-04] MEDS ORDERED: CRAN425C6 PO (15:16)
[2022-12-04] MEDS ORDERED: CEPH500C2 PO (15:16)
[2022-12-04] MEDS ORDERED: CALC-494 PO (15:16)
[2022-12-04] MEDS ORDERED: BENA20TA9 PO (15:16)
[2022-12-04] MEDS ORDERED: ACET-868 PO (15:16)
[2022-12-04] MEDS ORDERED: BISA10SU11 RC (15:16)
[2022-12-04] MEDS ORDERED: CETI-108 PO (15:16)
[2022-12-04] MEDS ORDERED: OLAN7.5T3 PO (15:16)
[2022-12-04] MEDS ORDERED: MAGN400O6 PO (15:16)
[2022-12-04] MEDS ORDERED: NA P133E RC (15:16)
[2022-12-04] MEDS ORDERED: MAGNESIUM HYDROXIDE 30 ML UDC PO PRN (16:30)
[2022-12-04] MEDS ORDERED: ACETAMINOPHEN 325 MG TABLET PO PRN (16:30)
[2022-12-04] MEDS ORDERED: NA PHOS,M-B/NA PHOS,DI-BA 1 EA ENEMA RC PRN (16:30)
[2022-12-04] MEDS ORDERED: BISACODYL SUPP (10 MG) 10 MG/SUPP.RECT SUPP.RECT RC PRN (16:30)
[2022-12-04] MEDS ORDERED: GUAIFENESIN 300 MG/15 ML UDC PO PRN (16:30)
[2022-12-04] MEDS ORDERED: ONDANSETRON 4 MG TAB.RAPDIS PO PRN (16:30)
--- NOTE | 2022-12-04 16:55 | NUR ---
MOVE SHEET SUBMITTED.
[2022-12-04] MEDS ORDERED: CEPHALEXIN MONOHYDRATE 500 MG CAPSULE PO SCH (17:00)
--- NOTE | 2022-12-04 18:54 | NUR ---
Joanna Ybarra Daughter
--- NOTE | 2022-12-04 19:42 | NUR ---
Patient Ox4, able to express her concerns. States hse is not sure why she is here. Made patient aware of plan of care, patient verbalized agreement.
--- NOTE | 2022-12-04 23:24 | NUR ---
Report given to Priyanka/RN, francisco cleared to move to Room #218
--- NOTE | 2022-12-05 02:59 | NUR ---
TRANSFERRED TO [facility] UNIT IN STABLE CONDITION
[2022-12-05] MEDS ORDERED: clonazePAM 0.5 MG TABLET PO PRN (03:30)
[2022-12-05] MEDS ORDERED: MAGNESIUM HYDROXIDE 30 ML UDC PO PRN (03:30)
[2022-12-05] MEDS ORDERED: MAG HYDROX/AL HYDROX/SIMETH 30 ML UDC PO PRN (03:30)
[2022-12-05] MEDS ORDERED: BLOOD SUGAR DIAGNOSTIC 1 EACH STRIP IN ONE (03:30)
[2022-12-05] MEDS ORDERED: TEMAZEPAM 7.5 MG CAPSULE PO PRN (03:30)
--- NOTE | 2022-12-05 05:34 | NUR ---
RN note: Will endorse to next shift to continue the admission process ( computer).
--- NOTE | 2022-12-05 05:55 | NUR ---
RN note: Admitted this 87 y/o female who came from [facility] and was medically cleared and placed on 5150 hold for GD due to increased agitation at [facility] ED .Upon face to face assessment,patient is alert, and has period of confusion and forgetful,anxious,restless,easily gets agitated,poor insight and poor judgement.Patient was contraband ,skin check done and reviewed patient Rights.MdD 's notified of the patient admission.Will conhtinue to monitor q15 min rounds for safety.
[2022-12-05 08:00] VITALS: BP 130/70
[2022-12-05] MEDS: ASPIRIN 81 MG TAB.CHEW PO SCH (08:41)
[2022-12-05] MEDS: BENAZEPRIL HCL 20 MG TABLET PO SCH (08:41)
[2022-12-05] MEDS: cetrizine 10 MG TABLET PO SCH (08:41)
[2022-12-05] MEDS: DOCUSATE SODIUM 100 MG CAPSULE PO SCH (08:42)
[2022-12-05] MEDS: CHOLECALCIFEROL 1,000 UNIT TABLET (VIT D3) PO SCH (08:42)
[2022-12-05] MEDS: CALCIUM CARBONATE (1250) 500 MG TABLET PO SCH (08:42)
[2022-12-05] MEDS: AMLODIPINE BESYLATE 5 MG TABLET PO SCH (08:42)
[2022-12-05 09:36] LABS: CREATININE 0.9 mg/dL (0.6-1.3)
--- NOTE | 2022-12-05 10:22 | NUR ---
RN-CO: Patient is alert and oriented x2-3, she refused MRSA swab. She is restless and anxious.Focus on dischareg. She needs constant redirections and reassurance. She needs minimal to moderate assistance due to her age and forgetfulness.
--- NOTE | 2022-12-05 10:44 | NUR ---
RN-CO: Admitted an [age] year old woman from ED. She was placed on a5150 hold for GD. Per hold she was non compliant, exhibiting aggressive and agitated behavior and paranoia. She thinks that people are stealing from her.She is alert oriented x 2,and she is easily agitated. She does not believe that she should be admitted in the unit. She is focus on discharge. Patient's rights were discussed and she verbalized understanding. She was advised of her hold. All belongings were screened from contrabands. Her skin is intact. She refused MRSA swab twice.We initiated plan of care.
--- NOTE | 2022-12-05 11:13 | NUR ---
RN-CO: MRSA WAS DONE IN THE ER, RESULT STILL PENDING.
--- NOTE | 2022-12-05 11:39 | NUR ---
RN-CO: We will call responsible democrat to clarify her code. Whether ist is full code or don not resuscitate. We will provide a form to fill up when daughter come in the unit.
--- NOTE | 2022-12-05 11:54 | NUR ---
RN-CO: WE WILL PROVIDE RESPONSIBLE GREEN PARTY A FORM, POLST TO SIGN WHEN SHE COME TO THE UNIT. WE WILL CALL HER TO INFORM ALSO.
--- NOTE | 2022-12-05 13:06 | NUR ---
SOTERO Initial Discharge Note: Patient currently resides at [facility] [address] [place] [address] ([phone]). SOTERO will contact pt's daughter SARAH Marshall ([phone]) to discuss treatment and discharge plan. SOTERO spoke with Rena Farooq from [facility] who stated that pt is welcomed back when pt is stable.
--- NOTE | 2022-12-05 13:06 | NUR ---
SOTERO Clinical Note: Pt placed on a 5150 hold for GD. Per hold, pt was increasingly agitated at her facility and was non compliant. [facility] [place] [address] ([phone]). SOTERO will contact pt's daughter SARAH Marshall ([phone]) to discuss treatment and discharge plan. SOTERO spoke with Rena Farooq from [facility] who stated that pt is welcomed back when pt is stable.
--- NOTE | 2022-12-05 14:00 | NUR ---
SOTERO Family Contact: SOTERO contacted pt's daughter Joanna ([phone]) DPOA and discussed treatment and discharge plan. She would want pt to return back to [facility] when pt is ready.
--- NOTE | 2022-12-05 14:11 | NUR ---
Treatment Plan: Pt suspicious and unable to comprehend to sign treatment plan.
--- NOTE | 2022-12-05 14:35 | NUR ---
RN-CO: DAUGHTER WAS NOTIFIED THAT PT IS HERE, DAUGHTER WILL E MAIL TO [facility] Addendum: 12/05/22 at 1437 by DANN CHATMAN RN RN-CO: PER DAUGHTER DIMA , PT IS DNR, AWAITING FOR A CLEARER COPY TO BE E MAILED.
--- NOTE | 2022-12-05 15:23 | NUR ---
RN-CO: notified dr bynum how many days more is the Keflex 500 mg PO. Awaiting for reply.
--- NOTE | 2022-12-05 15:56 | NUR ---
RN-CO: Clarified with Dr Cheng how many days more is the keflex 500mg, ordered x 6 more days, noted
[2022-12-05 16:00] VITALS: BP 133/67
[2022-12-05] MEDS: ENSURE ENLIVE 237 ML LIQUID (VANILLA) PO SCH (16:21)
[2022-12-05 20:24] VITALS: BP 153/73
[2022-12-05] MEDS: OLANZAPINE 2.5 MG TABLET PO SCH (21:35)
[2022-12-05] MEDS: CEPHALEXIN MONOHYDRATE 500 MG CAPSULE PO SCH (21:35)
[2022-12-05] MEDS: DICLOFENAC SODIUM 25 MG TABLET.DR PO SCH (21:36)
[2022-12-06 08:00] VITALS: BP 156/74
[2022-12-06] MEDS: CALCIUM CARBONATE (1250) 500 MG TABLET PO SCH (08:19)
[2022-12-06] MEDS: cetrizine 10 MG TABLET PO SCH (08:19)
[2022-12-06] MEDS: DOCUSATE SODIUM 100 MG CAPSULE PO SCH (08:19)
[2022-12-06] MEDS: DICLOFENAC SODIUM 25 MG TABLET.DR PO SCH ×2 (08:19→16:57)
[2022-12-06] MEDS: CEPHALEXIN MONOHYDRATE 500 MG CAPSULE PO SCH ×3 (08:20→21:34)
[2022-12-06] MEDS: CHOLECALCIFEROL 1,000 UNIT TABLET (VIT D3) PO SCH (08:20)
[2022-12-06] MEDS: BENAZEPRIL HCL 20 MG TABLET PO SCH (08:20)
[2022-12-06] MEDS: AMLODIPINE BESYLATE 5 MG TABLET PO SCH (08:20)
[2022-12-06] MEDS: ASPIRIN 81 MG TAB.CHEW PO SCH (08:20)
[2022-12-06] MEDS: DIVALPROEX SODIUM 125 MG CAP.SPRINK PO SCH ×3 (08:22→21:33)
[2022-12-06] MEDS: ENSURE ENLIVE 237 ML LIQUID (VANILLA) PO SCH ×2 (08:49→17:17)
--- NOTE | 2022-12-06 09:30 | NUR ---
RN Notes: Received pt. asleep in bed, breathing is even and unlabored. Ate 100% for breakfast and compliant on meds. Pt. isolates in her room and quiet. Encouraged to verbalize feelings, motivated to attend group activity and encouraged to take shower. Needs attended and will continue to monitor for safety.
[2022-12-06 18:57] VITALS: BP 139/72
--- NOTE | 2022-12-06 19:30 | NUR ---
GPS RN NOTE: RECEIVED PT IS SLEEPING ON THE BED, NO S/S OR COMPLAINTS OF PAIN AT THIS TIME.PT IS DISPLAYING NO S/S OF APPARENT DISTRESS AT THIS TIME. PT BREATHING IS UNLABORED WITH EQUAL RISE AND FALL OF THE CHEST. ALERT AND ORIENTED X 1-2, ON ROOM AIR WITH A SPO2 97% PT CONFUSED, RESTLESS AND COOPERATIVE , ISOLATIVE IN THE ROOM , AMBULATORY WITH WALKER . BED LOCKED AND LOWER.WILL CONTINUE TO MONITOR Q 15 MIN TO MAINTAIN SAFETY.
[2022-12-06 20:00] VITALS: BP 123/79
[2022-12-06] MEDS: OLANZAPINE 2.5 MG TABLET PO SCH ×2 (21:34→21:45)
--- NOTE | 2022-12-06 21:45 | NUR ---
GPS RN NOTE, PATIENT REFUSED DEPAKOTE SPRINKLE 125MG PO Q12HR, KEFLEX 500MG PO Q12HR, AND ZYPREXA 2.5MG PO HS. OFFERED DEPAKOTE, KEFLEX, AND ZYPREXA THREE TIMES AND STILL PATIENT REFUSED STATING, " NO I'M TO TIRED TO TAKE THOSE MEDICATIONS ". EDUCATED PATIENT ON THE RISKS AND BENEFITS OF TAKING AND REFUSING AFOREMENTIONED MEDICATIONS. WILL CONTINUE TO MONITOR THIS PATIENT WITH THE HELP OF STAFF.
[2022-12-06 22:00] VITALS: BP 123/79
[2022-12-07 08:00] VITALS: BP 116/68
[2022-12-07] MEDS: ASPIRIN 81 MG TAB.CHEW PO SCH (08:44)
[2022-12-07] MEDS: BENAZEPRIL HCL 20 MG TABLET PO SCH (08:44)
[2022-12-07] MEDS: CALCIUM CARBONATE (1250) 500 MG TABLET PO SCH (08:44)
[2022-12-07] MEDS: CHOLECALCIFEROL 1,000 UNIT TABLET (VIT D3) PO SCH (08:45)
[2022-12-07] MEDS: DICLOFENAC SODIUM 25 MG TABLET.DR PO SCH ×2 (08:45→16:08)
[2022-12-07] MEDS: DOCUSATE SODIUM 100 MG CAPSULE PO SCH ×2 (08:45→08:54)
[2022-12-07] MEDS: DIVALPROEX SODIUM 125 MG CAP.SPRINK PO SCH ×2 (08:45→21:07)
[2022-12-07] MEDS: AMLODIPINE BESYLATE 5 MG TABLET PO SCH (08:45)
[2022-12-07] MEDS: cetrizine 10 MG TABLET PO SCH (08:45)
[2022-12-07] MEDS: CEPHALEXIN MONOHYDRATE 500 MG CAPSULE PO SCH ×2 (08:45→21:07)
[2022-12-07] MEDS: ENSURE ENLIVE 237 ML LIQUID (VANILLA) PO SCH ×2 (08:46→17:07)
--- NOTE | 2022-12-07 09:40 | NUR ---
RN Notes: Received pt. awake in bed and responsive to staffs. Ate 100% for breakfast and refused Colace and compliant on the rest of her meds. Encouraged to verbalize feelings, motivated to attend group activity and encouraged to take shower. Needs attended and will continue to monitor for safety.
[2022-12-07 16:00] VITALS: BP 137/75
[2022-12-07] MEDS: ACETAMINOPHEN 325 MG TABLET PO PRN (19:46)
--- NOTE | 2022-12-07 20:18 | NUR ---
LEASE ADMINISTRATION ANALYST NOTES: RECEIVED PATIENT IN BED AWAKE, ALERT ORIENTED X 1, COOPERATIVE. AMBULATORY WITH WALKER. C/O MILD PAIN 3/10, GENERALIZED. REQUEST PRN TYLENOL 650 MG GIVEN PO PER MD'S ORDER. WILL CLOSELY MONITOR SAFETY AND BEHAVIOR.
[2022-12-07] MEDS: OLANZAPINE 2.5 MG TABLET PO SCH (21:08)
--- NOTE | 2022-12-08 07:00 | NUR ---
Patient remains asleep. appears calm and comfortable. No s/s distress and discomfort noted. Safety measures maintains at all times. Cooperative and med compliant during shift. Will endorse to to AM shift nurse.
[2022-12-08 08:00] VITALS: BP 126/96
[2022-12-08] MEDS: ENSURE ENLIVE 237 ML LIQUID (VANILLA) PO SCH ×2 (08:15→17:55)
[2022-12-08] MEDS: DIVALPROEX SODIUM 125 MG CAP.SPRINK PO SCH ×2 (08:15→21:28)
[2022-12-08] MEDS: cetrizine 10 MG TABLET PO SCH (08:16)
[2022-12-08] MEDS: CHOLECALCIFEROL 1,000 UNIT TABLET (VIT D3) PO SCH (08:16)
[2022-12-08] MEDS: CALCIUM CARBONATE (1250) 500 MG TABLET PO SCH (08:16)
[2022-12-08] MEDS: BENAZEPRIL HCL 20 MG TABLET PO SCH (08:16)
[2022-12-08] MEDS: ASPIRIN 81 MG TAB.CHEW PO SCH (08:16)
[2022-12-08] MEDS: CEPHALEXIN MONOHYDRATE 500 MG CAPSULE PO SCH ×2 (08:16→21:28)
[2022-12-08] MEDS: DOCUSATE SODIUM 100 MG CAPSULE PO SCH (08:16)
[2022-12-08] MEDS: AMLODIPINE BESYLATE 5 MG TABLET PO SCH (08:17)
[2022-12-08] MEDS: DICLOFENAC SODIUM 25 MG TABLET.DR PO SCH ×2 (09:08→16:21)
--- NOTE | 2022-12-08 09:40 | NUR ---
RN Notes: Received pt. awake in bed and responsive to staffs. Ate 100% for breakfast and compliant on her meds. Encouraged to verbalize feelings, motivated to attend group activity and encouraged to take shower. No distress and no agitation noted. Needs attended and will continue to monitor for safety.
[2022-12-08 16:00] VITALS: BP_SYST 122; BP_SYST 126; BP_DIAS 67; BP_DIAS 79
--- NOTE | 2022-12-08 19:30 | NUR ---
GPS RN NOTE, RECEIVED PATIENT AWAKE AND IN BED, NO S/S OR COMPLAINTS OF PAIN AT THIS TIME. PATIENT IS DISPLAYING NO S/S OF APPARENT DISTRESS AT THIS TIME. PATIENT BREATHING IS UNLABORED WITH EQUAL RISE AND FALL OF THE CHEST. PATIENT IS ALERT AND ORIENTED X 1-2 ON ROOM AIR WITH A SPO2 97%. PATIENT IS COMPLIANT WITH MEDICATIONS, CONFUSED AT TIMES, FORGETFUL, MAKES NEEDS KNOWN, AND COOPERATIVE. PATIENT DENIES SUICIDAL AND HOMICIDAL IDEATIONS AT THIS TIME. PATIENT ASSISTED WITH TURNING AND REPOSITIONING Q2HR AND PRN FOR COMFORT AND CIRCULATION. PATIENT HAS NO NEEDS AT THIS TIME. PATIENT EDUCATED ON THE USE OF THE CALL SEGURA. PATIENT BED SIDE RAILS UP X 2 FOR SAFETY. PATIENT BED IS LOCKED, LOW, WITH BED ALARM ON. WILL CONTINUE TO MONITOR THIS PATIENT Q15 MINUTES WITH THE HELP OF STAFF TO MAINTAIN SAFETY.
[2022-12-08 20:00] VITALS: BP 134/63
[2022-12-08] MEDS: OLANZAPINE 2.5 MG TABLET PO SCH (21:28)
--- NOTE | 2022-12-09 07:30 | NUR ---
GPS RN NOTES RECEIVED PT SLEEPING BED COMFORTABLY, EASILY AWAKEN, AOX1-2, ASKED IF TODAY WAS SATURDAY, PLEASANT AND COOPERATIVE, ABLE TO VERBALIZE NEEDS, BREATHING WITHOUT DIFFICULTY ON ROOM AIR, DENIED PAIN NOR DISCOMFORT AT THIS MOMENT. DENIED SI/HI. ORIENTED TO ROOM AND STAFF. SAFETY MEASURES IN PLACE: BED IN LOWEST AND LOCKED POSITION, SIDE RAILS UP X2, TRAY TABLE WITHIN EASY REACH. WILL DO VISUAL CHECKS ON PATIENT FREQUENTLY AND WILL MONITOR FOR SAFETY.
[2022-12-09 08:00] VITALS: BP 128/66
[2022-12-09] MEDS: ENSURE ENLIVE 237 ML LIQUID (VANILLA) PO SCH ×2 (08:07→16:26)
[2022-12-09] MEDS: cetrizine 10 MG TABLET PO SCH (08:23)
[2022-12-09] MEDS: CHOLECALCIFEROL 1,000 UNIT TABLET (VIT D3) PO SCH (08:23)
[2022-12-09] MEDS: CALCIUM CARBONATE (1250) 500 MG TABLET PO SCH (08:23)
[2022-12-09] MEDS: DOCUSATE SODIUM 100 MG CAPSULE PO SCH (08:23)
[2022-12-09] MEDS: DIVALPROEX SODIUM 125 MG CAP.SPRINK PO SCH ×2 (08:24→20:53)
[2022-12-09] MEDS: ASPIRIN 81 MG TAB.CHEW PO SCH (08:25)
[2022-12-09] MEDS: CEPHALEXIN MONOHYDRATE 500 MG CAPSULE PO SCH ×2 (08:25→20:54)
[2022-12-09] MEDS: DICLOFENAC SODIUM 25 MG TABLET.DR PO SCH ×3 (08:25→16:26)
[2022-12-09] MEDS: BENAZEPRIL HCL 20 MG TABLET PO SCH (08:26)
[2022-12-09] MEDS: AMLODIPINE BESYLATE 5 MG TABLET PO SCH (08:26)
[2022-12-09 16:00] VITALS: BP 117/66
[2022-12-09] MEDS: ACETAMINOPHEN 325 MG TABLET PO PRN (18:39)
--- NOTE | 2022-12-09 18:39 | NUR ---
RN NOTES PATIENT COMPLAINING OF MILD HEADACHE, GIVEN TYLENOL 650 MG PO ORDERED.
--- NOTE | 2022-12-09 19:03 | NUR ---
GPS RN CLOSING NOTES PATIENT IS SLEEPING COMFORTABLY IN BED, EASILY AWAKEN, CALM, RESPONSIVE, AOX2, BREATHING ON ROOM AIR WITHOUT DIFFICULTY, NOT IN ANY FORM OF ACUTE DISTRESS, SAFETY MEASURES IN PLACE: BED IN LOWEST AND LOCKED POSITION, SIDE RAILS UP X2, TRAY TABLE WITHIN EASY REACH. WILL ENDORSE TO COMMERCIAL REAL ESTATE SALES MANAGER NURSE.
[2022-12-09 20:42] VITALS: BP 125/63
[2022-12-09] MEDS: OLANZAPINE 2.5 MG TABLET PO SCH (21:09)
[2022-12-10 08:00] VITALS: BP 140/56
[2022-12-10] MEDS: cetrizine 10 MG TABLET PO SCH (08:04)
[2022-12-10] MEDS: CALCIUM CARBONATE (1250) 500 MG TABLET PO SCH (08:04)
[2022-12-10] MEDS: ASPIRIN 81 MG TAB.CHEW PO SCH (08:04)
[2022-12-10] MEDS: DIVALPROEX SODIUM 125 MG CAP.SPRINK PO SCH ×2 (08:04→21:12)
[2022-12-10] MEDS: DOCUSATE SODIUM 100 MG CAPSULE PO SCH (08:04)
[2022-12-10] MEDS: CEPHALEXIN MONOHYDRATE 500 MG CAPSULE PO SCH ×2 (08:04→21:12)
[2022-12-10] MEDS: CHOLECALCIFEROL 1,000 UNIT TABLET (VIT D3) PO SCH (08:04)
[2022-12-10] MEDS: DICLOFENAC SODIUM 25 MG TABLET.DR PO SCH (08:04)
[2022-12-10] MEDS: BENAZEPRIL HCL 20 MG TABLET PO SCH (08:05)
[2022-12-10] MEDS: AMLODIPINE BESYLATE 5 MG TABLET PO SCH (08:05)
[2022-12-10] MEDS: ENSURE ENLIVE 237 ML LIQUID (VANILLA) PO SCH ×2 (08:19→17:38)
[2022-12-10] MEDS: IBUPROFEN 200 MG TABLET PO SCH ×4 (09:00→18:38)
--- NOTE | 2022-12-10 12:06 | NUR ---
RN-CO: PT REFUSED MOTRIN, STATED " I DON'T HAVE PAIN I DON'T NEED IT."
[2022-12-10 16:00] VITALS: BP 120/65
[2022-12-10] MEDS: OLANZAPINE 2.5 MG TABLET PO SCH (21:12)
[2022-12-10 21:17] VITALS: BP 128/62
[2022-12-11] MEDS: IBUPROFEN 200 MG TABLET PO SCH ×4 (00:11→17:41)
[2022-12-11 08:00] VITALS: BP 126/59
[2022-12-11] MEDS: ENSURE ENLIVE 237 ML LIQUID (VANILLA) PO SCH ×2 (08:57→17:41)
[2022-12-11] MEDS: AMLODIPINE BESYLATE 5 MG TABLET PO SCH (09:00)
[2022-12-11] MEDS: DOCUSATE SODIUM 100 MG CAPSULE PO SCH (09:00)
[2022-12-11] MEDS: DIVALPROEX SODIUM 125 MG CAP.SPRINK PO SCH ×2 (09:13→21:27)
[2022-12-11] MEDS: cetrizine 10 MG TABLET PO SCH (09:13)
[2022-12-11] MEDS: ASPIRIN 81 MG TAB.CHEW PO SCH (09:13)
[2022-12-11] MEDS: BENAZEPRIL HCL 20 MG TABLET PO SCH (09:13)
[2022-12-11] MEDS: CHOLECALCIFEROL 1,000 UNIT TABLET (VIT D3) PO SCH (09:13)
[2022-12-11] MEDS: CEPHALEXIN MONOHYDRATE 500 MG CAPSULE PO SCH ×2 (09:16→21:27)
[2022-12-11] MEDS: CALCIUM CARBONATE (1250) 500 MG TABLET PO SCH (09:17)
--- NOTE | 2022-12-11 14:18 | NUR ---
Court Hearing: SOTERO contacted pt's daughter SARAH Marshall ([phone]) and left a voicemail of [phone] hearing.
--- NOTE | 2022-12-11 14:19 | NUR ---
Court Hearin hearing was upheld for GD.
[2022-12-11 16:00] VITALS: BP 122/65
[2022-12-11 20:36] VITALS: BP 125/68
[2022-12-11] MEDS: OLANZAPINE 2.5 MG TABLET PO SCH (21:27)
--- NOTE | 2022-12-12 | NUR ---
RN NOTE; PT REFUSED IBUPROFEN 200MG.
[2022-12-12] MEDS: IBUPROFEN 200 MG TABLET PO SCH ×7 (01:50→23:46)
[2022-12-12 08:00] VITALS: BP 131/70
[2022-12-12] MEDS: ENSURE ENLIVE 237 ML LIQUID (VANILLA) PO SCH ×2 (08:51→17:31)
[2022-12-12] MEDS: BENAZEPRIL HCL 20 MG TABLET PO SCH (09:08)
[2022-12-12] MEDS: DOCUSATE SODIUM 100 MG CAPSULE PO SCH (09:08)
[2022-12-12] MEDS: cetrizine 10 MG TABLET PO SCH (09:08)
[2022-12-12] MEDS: CALCIUM CARBONATE (1250) 500 MG TABLET PO SCH (09:08)
[2022-12-12] MEDS: ASPIRIN 81 MG TAB.CHEW PO SCH (09:08)
[2022-12-12] MEDS: CHOLECALCIFEROL 1,000 UNIT TABLET (VIT D3) PO SCH (09:08)
[2022-12-12] MEDS: DIVALPROEX SODIUM 125 MG CAP.SPRINK PO SCH ×2 (09:08→20:37)
[2022-12-12] MEDS: AMLODIPINE BESYLATE 5 MG TABLET PO SCH (09:08)
[2022-12-12 16:00] VITALS: BP 132/62
[2022-12-12 20:17] VITALS: BP 133/66
[2022-12-12] MEDS: OLANZAPINE 2.5 MG TABLET PO SCH (21:15)
--- NOTE | 2022-12-12 22:00 | NUR ---
RN NOTES PATIENT REFUSED ZYPREXA 2.5MG " I DON'T WANT ZYPREXA IM SO SLEEPY TODAY". WILL CONTINUE TO MONITOR.
--- NOTE | 2022-12-12 23:46 | NUR ---
RN NOTES PATIENT REFUSED MOTRIN 200MG TABLET AT 0000H. PATIENT VERBALIZED " I DON'T LIKE IT IM SLEEPY". WILL CONTINUE TO MONITOR.
[2022-12-13] MEDS: IBUPROFEN 200 MG TABLET PO SCH ×3 (05:59→17:51)
--- NOTE | 2022-12-13 07:15 | NUR ---
JOB PLACEMENT SPECIALIST OPENING NOTE PATIENT AWAKE,ALERT AND ORIENTED X3. PATIENT DENIES PAIN, NO RESPIRATORY DISTRESS NOTED. PATIENT IN BED FOR NOW. SAFETY MEASURES IN PLACE. BED LOCKED TO THE LOWEST POSITION, TABLE AND WALKER WITHIN REACH. CONT. TO MONITOR.
[2022-12-13 08:00] VITALS: BP 131/68
[2022-12-13] MEDS: ENSURE ENLIVE 237 ML LIQUID (VANILLA) PO SCH ×2 (08:00→17:00)
[2022-12-13] MEDS: CHOLECALCIFEROL 1,000 UNIT TABLET (VIT D3) PO SCH (09:34)
[2022-12-13] MEDS: CALCIUM CARBONATE (1250) 500 MG TABLET PO SCH (09:34)
[2022-12-13] MEDS: DOCUSATE SODIUM 100 MG CAPSULE PO SCH (09:34)
[2022-12-13] MEDS: cetrizine 10 MG TABLET PO SCH (09:34)
[2022-12-13] MEDS: DIVALPROEX SODIUM 125 MG CAP.SPRINK PO SCH ×2 (09:34→20:47)
[2022-12-13] MEDS: ASPIRIN 81 MG TAB.CHEW PO SCH (09:34)
[2022-12-13] MEDS: BENAZEPRIL HCL 20 MG TABLET PO SCH (09:34)
[2022-12-13] MEDS: AMLODIPINE BESYLATE 5 MG TABLET PO SCH (09:34)
[2022-12-13 16:00] VITALS: BP 132/66
--- NOTE | 2022-12-13 18:57 | NUR ---
COMMUNICATIONS AGENT CLOSING NOTE PATIENT IS SITTING ON THE PABLO CHAIR CONVERSING WITH HER FAMILY. I WILL ENDORSE TO THE FOLLOWING NURSE.
[2022-12-13] MEDS: OLANZAPINE 2.5 MG TABLET PO SCH (21:23)
[2022-12-14] MEDS: IBUPROFEN 200 MG TABLET PO SCH ×4 (00:36→18:22)
--- NOTE | 2022-12-14 06:36 | NUR ---
GPS RN NOTE: PATIENT RESTING IN BED 9 HOURS OF SLEEP, NO S/S OF DISTRESS OR DISCOMFORT. PT. BEHAVIOR WAS COOPERTIVE , EASILY AGITATED, PARANOID , FORGETFUL THROUGHOUT SHIFT, A/Ox1. NO S/S OF RESPIRATORY DISTRESS. MED COMPLIANT, SAFETY PRECAUTIONS MAINTAINED, ALL NEEDS ATTENDED AND ANTICIPATED, WILL CONTINUE TO MONITOR FOR SAFETY AND BEHAVIOR.
--- NOTE | 2022-12-14 07:00 | NUR ---
GEAR KEEPER OPENING NOTE PATIENT SLEEPING. PATIENT STATED" DO NOT WAKE ME UP ", I WANT TO SLEEP. PATIENT WITH NO S/S OF DISCOMFORT NOTED. PATIENT DENIES PAIN. NO RESPIRATORY; DISTRESS NOTED. SAFETY MEASURES IN PLACE. BED LOCKED TO THE LOWEST POSITION. TABLE WITHIN REACH. CONT. TO MONITOR.
[2022-12-14 08:00] VITALS: BP 113/55
[2022-12-14] MEDS: ENSURE ENLIVE 237 ML LIQUID (VANILLA) PO SCH ×2 (08:02→18:38)
[2022-12-14] MEDS: ASPIRIN 81 MG TAB.CHEW PO SCH (08:54)
[2022-12-14] MEDS: CHOLECALCIFEROL 1,000 UNIT TABLET (VIT D3) PO SCH (08:54)
[2022-12-14] MEDS: AMLODIPINE BESYLATE 5 MG TABLET PO SCH (08:54)
[2022-12-14] MEDS: CALCIUM CARBONATE (1250) 500 MG TABLET PO SCH (08:55)
[2022-12-14] MEDS: BENAZEPRIL HCL 20 MG TABLET PO SCH (08:55)
[2022-12-14] MEDS: cetrizine 10 MG TABLET PO SCH (08:55)
[2022-12-14] MEDS: DOCUSATE SODIUM 100 MG CAPSULE PO SCH (08:55)
[2022-12-14] MEDS: DIVALPROEX SODIUM 125 MG CAP.SPRINK PO SCH ×2 (08:55→21:55)
--- NOTE | 2022-12-14 12:00 | NUR ---
EXEC. CREATIVE DIRECTOR NOTE PATIENT IN BED, REFUSING TO GO TO THE ACTIVITY ROOM AND ALS PATIENT REFUSED TO TAKE MOTRIN SCHEDULED FOR 1200. PATIENT STATED" LEAVE ME ALONE". I DO NOT WANT ANYTHING RIGHT NOW". EMOTIONAL SUPPORT GIVEN TO PATIENT AND ALSO I TOLD THE PATIENT THAT I WILL COMEBACK TO CHECK ON HER EVERY 15MINUTES. PATIENT AGREE.
[2022-12-14 16:02] VITALS: BP 129/58
[2022-12-14] MEDS: OLANZAPINE 2.5 MG TABLET PO SCH (21:55)
[2022-12-15] MEDS: IBUPROFEN 200 MG TABLET PO SCH ×5 (06:14→23:34)
--- NOTE | 2022-12-15 06:46 | NUR ---
GPS RN NOTE: PATIENT RESTING IN BED 7 HOURS OF SLEEP, NO S/S OF DISTRESS OR DISCOMFORT. PT. BEHAVIOR WAS COOPERTIVE , EASILY AGITATED, PARANOID , FORGETFUL THROUGHOUT SHIFT, A/Ox2. NO S/S OF RESPIRATORY DISTRESS. MED COMPLIANT, SAFETY PRECAUTIONS MAINTAINED, ALL NEEDS ATTENDED AND ANTICIPATED, WILL CONTINUE TO MONITOR FOR SAFETY AND BEHAVIOR.
[2022-12-15 08:00] VITALS: BP 112/65
[2022-12-15] MEDS: ENSURE ENLIVE 237 ML LIQUID (VANILLA) PO SCH ×2 (08:00→12:32)
[2022-12-15] MEDS: BENAZEPRIL HCL 20 MG TABLET PO SCH (09:00)
[2022-12-15] MEDS: AMLODIPINE BESYLATE 5 MG TABLET PO SCH (09:35)
[2022-12-15] MEDS: CALCIUM CARBONATE (1250) 500 MG TABLET PO SCH (09:35)
[2022-12-15] MEDS: DOCUSATE SODIUM 100 MG CAPSULE PO SCH (09:36)
[2022-12-15] MEDS: ASPIRIN 81 MG TAB.CHEW PO SCH (09:36)
[2022-12-15] MEDS: DIVALPROEX SODIUM 125 MG CAP.SPRINK PO SCH ×2 (09:36→21:36)
[2022-12-15] MEDS: cetrizine 10 MG TABLET PO SCH (09:36)
[2022-12-15] MEDS: CHOLECALCIFEROL 1,000 UNIT TABLET (VIT D3) PO SCH (09:36)
--- NOTE | 2022-12-15 12:32 | NUR ---
PT. REQUESTED ENSURE EARLY.
[2022-12-15 16:00] VITALS: BP 104/52
--- NOTE | 2022-12-15 18:51 | NUR ---
quiet,pleasant,talkative with nurse.
--- NOTE | 2022-12-15 19:03 | NUR ---
requested b complex and zinc ordered.texted to jackie.note left for soc.service pt. wants dc to [facility].
[2022-12-15 20:26] VITALS: BP 113/70
[2022-12-15 20:55] VITALS: BP 113/70
[2022-12-15] MEDS: OLANZAPINE 2.5 MG TABLET PO SCH (21:36)
--- NOTE | 2022-12-15 23:34 | NUR ---
MOTRIN SCHEDULED AT MIDNIGHT NOT GIVEN, PATIENT ASLEEP, APPEARED COMFORTABLE
[2022-12-16] MEDS: IBUPROFEN 200 MG TABLET PO SCH ×5 (05:49→23:45)
--- NOTE | 2022-12-16 06:11 | NUR ---
ASLEEP, EASILY AROUSEABLE, NO DISTRESS, TOOK ALL PM MEDS, GIVEN MOTRIN SCHEDULED, STAYED IN ROOM DURING SHIFT, KEPT SAFE, WILL CONTINUE TO MONITOR.
--- NOTE | 2022-12-16 07:30 | NUR ---
PT RECEIVED RESTING COMFORTABLY IN BED WITH EYES CLOSED. NO S/S OR C/O PAIN OR DISTRESS NOTED. SIDE RAILS UP X2. WILL CONTINUE PLAN OF CARE.
[2022-12-16 08:00] VITALS: BP 126/55
[2022-12-16] MEDS: ASPIRIN 81 MG TAB.CHEW PO SCH (10:25)
[2022-12-16] MEDS: BENAZEPRIL HCL 20 MG TABLET PO SCH (10:26)
[2022-12-16] MEDS: cetrizine 10 MG TABLET PO SCH (10:26)
[2022-12-16] MEDS: CHOLECALCIFEROL 1,000 UNIT TABLET (VIT D3) PO SCH (10:27)
[2022-12-16] MEDS: DIVALPROEX SODIUM 125 MG CAP.SPRINK PO SCH ×2 (10:27→21:03)
[2022-12-16] MEDS: AMLODIPINE BESYLATE 5 MG TABLET PO SCH (10:27)
[2022-12-16] MEDS: CALCIUM CARBONATE (1250) 500 MG TABLET PO SCH (10:27)
[2022-12-16] MEDS: ENSURE ENLIVE 237 ML LIQUID (VANILLA) PO SCH ×2 (10:28→16:50)
[2022-12-16] MEDS: DOCUSATE SODIUM 100 MG CAPSULE PO SCH (10:28)
[2022-12-16 16:00] VITALS: BP 112/62
--- NOTE | 2022-12-16 18:34 | NUR ---
CHANGE OF SHIFT REPORT PT SITTING COMFORTABLY IN ACTIVITY ROOM. NO S/S OR C/O PAIN OR DISTRESS NOTED. PT KEPT CLEAN, DRY, AND COMFORTABLE. NO SIGNIFICANT CHANGES SINCE PREVIOUS SHIFT. WILL GIVE REPORT TO MICAELA JENNINGS.
[2022-12-16 20:18] VITALS: BP 101/54
[2022-12-16] MEDS: OLANZAPINE 2.5 MG TABLET PO SCH (21:03)
--- NOTE | 2022-12-16 23:46 | NUR ---
RN NOTE MOTRIN SCHEDULED AT MIDNIGHT NOT GIVEN, PATIENT IS ASLEEP, APPEARED COMFORTABLE.
[2022-12-17] MEDS: IBUPROFEN 200 MG TABLET PO SCH ×6 (06:00→23:19)
--- NOTE | 2022-12-17 06:17 | NUR ---
RN NOTE MOTRIN SCHEDULED AT 0600 NOT GIVEN, PATIENT WANTS TO CONTINUE SLEEPING. PT STATED "I DONT NEED IT. I WANT BREAKFAST". INFORMED PATIENT THAT BREAKFAST WOULD BE ANOTHER HOUR. ALL NEEDS MET AT THIS TIME.
[2022-12-17 08:00] VITALS: BP 125/65
[2022-12-17] MEDS: ENSURE ENLIVE 237 ML LIQUID (VANILLA) PO SCH ×2 (08:56→17:20)
[2022-12-17] MEDS: DIVALPROEX SODIUM 125 MG CAP.SPRINK PO SCH ×2 (09:03→20:54)
[2022-12-17] MEDS: cetrizine 10 MG TABLET PO SCH (09:03)
[2022-12-17] MEDS: DOCUSATE SODIUM 100 MG CAPSULE PO SCH (09:03)
[2022-12-17] MEDS: CHOLECALCIFEROL 1,000 UNIT TABLET (VIT D3) PO SCH (09:04)
[2022-12-17] MEDS: AMLODIPINE BESYLATE 5 MG TABLET PO SCH (09:04)
[2022-12-17] MEDS: CALCIUM CARBONATE (1250) 500 MG TABLET PO SCH (09:04)
[2022-12-17] MEDS: BENAZEPRIL HCL 20 MG TABLET PO SCH (09:05)
[2022-12-17] MEDS: ASPIRIN 81 MG TAB.CHEW PO SCH (09:05)
[2022-12-17 16:00] VITALS: BP 124/75
[2022-12-17 20:28] VITALS: BP 110/55
[2022-12-17] MEDS: OLANZAPINE 2.5 MG TABLET PO SCH (22:01)
--- NOTE | 2022-12-17 22:30 | NUR ---
RN NOTE TOOK OUT WRONG DOSAGE MEDICATION, CETIRIZINE / ZYRTEC 10 MG, FROM THE [facility]. RETURNED THIS MEDICATION, AND TOOK THE CORRECT DOSAGE OF THE MEDICATION, CETIRIZINE / ZYRTEC 2.5 MG, ADMINISTERED TO THE PT.
--- NOTE | 2022-12-17 23:21 | NUR ---
RN NOTE PT REFUSED SCHEDULED MEDICATION, MOTRIN, DUE AT 0000. MEDICATION WAS RETURNED TO THE [facility].
[2022-12-18] MEDS: IBUPROFEN 200 MG TABLET PO SCH ×4 (06:34→23:39)
[2022-12-18 08:00] VITALS: BP 136/75
[2022-12-18] MEDS: ENSURE ENLIVE 237 ML LIQUID (VANILLA) PO SCH ×2 (08:00→17:08)
[2022-12-18] MEDS: ASPIRIN 81 MG TAB.CHEW PO SCH (08:39)
[2022-12-18] MEDS: CALCIUM CARBONATE (1250) 500 MG TABLET PO SCH (08:39)
[2022-12-18] MEDS: CHOLECALCIFEROL 1,000 UNIT TABLET (VIT D3) PO SCH (08:39)
[2022-12-18] MEDS: DIVALPROEX SODIUM 125 MG CAP.SPRINK PO SCH ×3 (08:39→21:16)
[2022-12-18] MEDS: BENAZEPRIL HCL 20 MG TABLET PO SCH (08:39)
[2022-12-18] MEDS: DOCUSATE SODIUM 100 MG CAPSULE PO SCH (08:39)
[2022-12-18] MEDS: cetrizine 10 MG TABLET PO SCH (08:39)
[2022-12-18] MEDS: AMLODIPINE BESYLATE 5 MG TABLET PO SCH (08:40)
[2022-12-18 16:07] VITALS: BP 120/58
--- NOTE | 2022-12-18 20:00 | NUR ---
RN NOTE :- RECEIVED PATIENT ASLEEP IN BED, BREATHING EVEN AND NON LABORED WITH NO S/S OF DISTRESS. PATIENT IS COOPERATIVE, ANXIOUS, GUARDED, DEPRESSED, AND SUSPICIOUS. PATIENT IS MEDICATION COMPLIANT. DENIES SI/HI AT THIS TIME. WILL CONTINUE TO MONITOR Q 15 MINUTES FOR SAFETY AND BEHAVIOR.
[2022-12-18 21:02] VITALS: BP 107/49
[2022-12-18] MEDS: OLANZAPINE 2.5 MG TABLET PO SCH ×2 (21:16→21:17)
--- NOTE | 2022-12-18 23:27 | NUR ---
RN NOTE :- PATIENT REFUSED ALL NIGHT MEDS, DEPAKOTE SPRINKLE 125 MG, ZYPREXA 2.5 MG , MOTRIN 200 MG, OFFERED 3 TIMES. PATIENT VERBALIZED " I DON'T LIKE IT I AM SLEEPY". WILL CONTINUE TO MONITOR.
[2022-12-19] MEDS: IBUPROFEN 200 MG TABLET PO SCH ×4 (05:25→23:06)
--- NOTE | 2022-12-19 05:30 | NUR ---
RN NOTE:- PATIENT REFUSED MOTRIN 200MG TABLET AT 0600, PATIENT VERBALIZED " I DON'T WANT IT IM SLEEPY". WILL CONTINUE TO MONITOR.
--- NOTE | 2022-12-19 06:28 | NUR ---
RN NOTE :- PATIENT IS SLEEPING COMFORTABLY IN BED, EASILY AWAKEN, CALM, RESPONSIVE, AOX2, BREATHING ON ROOM AIR WITHOUT DIFFICULTY, NOT IN ANY FORM OF ACUTE DISTRESS, SAFETY MEASURES IN PLACE: BED IN LOWEST AND LOCKED POSITION, SIDE RAILS UP X2, TRAY TABLE WITHIN EASY REACH. WILL ENDORSE TO [facility] STILL OPERATOR NURSE. Addendum: 12/19/22 at 0634 by SHANDA OSPINA RN ENDORSE TO MORNING SHIFT NURSE*
[2022-12-19] MEDS: ENSURE ENLIVE 237 ML LIQUID (VANILLA) PO SCH ×2 (07:29→16:01)
[2022-12-19 08:00] VITALS: BP 125/52
[2022-12-19] MEDS: DIVALPROEX SODIUM 125 MG CAP.SPRINK PO SCH ×2 (08:45→21:07)
[2022-12-19] MEDS: CALCIUM CARBONATE (1250) 500 MG TABLET PO SCH (08:45)
[2022-12-19] MEDS: ASPIRIN 81 MG TAB.CHEW PO SCH (08:45)
[2022-12-19] MEDS: DOCUSATE SODIUM 100 MG CAPSULE PO SCH (08:46)
[2022-12-19] MEDS: CHOLECALCIFEROL 1,000 UNIT TABLET (VIT D3) PO SCH (08:46)
[2022-12-19] MEDS: cetrizine 10 MG TABLET PO SCH (08:46)
[2022-12-19] MEDS: BENAZEPRIL HCL 20 MG TABLET PO SCH (08:46)
[2022-12-19] MEDS: AMLODIPINE BESYLATE 5 MG TABLET PO SCH (08:47)
[2022-12-19 16:00] VITALS: BP 152/65
[2022-12-19 20:02] VITALS: BP 125/57
[2022-12-19] MEDS: OLANZAPINE 2.5 MG TABLET PO SCH (21:07)
--- NOTE | 2022-12-19 23:28 | NUR ---
RN NOTE:- PATIENT REFUSED MOTRIN 200MG TABLET AT 0000, PATIENT VERBALIZED " I DON'T WANT IT IM SLEEPY". WILL CONTINUE TO MONITOR.
[2022-12-20] MEDS: IBUPROFEN 200 MG TABLET PO SCH ×2 (06:00→12:25)
--- NOTE | 2022-12-20 06:13 | NUR ---
RN NOTE :-PATIENT IS SLEEPING COMFORTABLY IN BED, EASILY AWAKEN, CALM, RESPONSIVE, AOX2, BREATHING ON ROOM AIR WITHOUT DIFFICULTY, NOT IN ANY FORM OF ACUTE DISTRESS, SAFETY MEASURES IN PLACE: BED IN LOWEST AND LOCKED POSITION, SIDE RAILS UP X2, TRAY TABLE WITHIN EASY REACH. WILL CONTINUE TO MONITOR.
[2022-12-20 08:00] VITALS: BP 119/63
--- NOTE | 2022-12-20 08:07 | NUR ---
SW Discharge Note: Patient will be discharged to [facility] [address], [place] [address] ([phone]). Please arrange ambulance transportation at 1PM. Spoke with Pearl, Admin Coordinator at the facility who states they are ready to accept the patient today. Patients DPOA daughter Joanna ([phone]) is aware and agreeable. Patient is alert and oriented x3, is unable to plan for self-care at this time, however, is willing to accept care at [facility]. Patient denies any suicidal or homicidal ideation. Patient will continue to follow-up with (Psychiatrist) Dr. Encinas [address] [facility] [address], [place] [address]; ([phone]) Dr. Cheng [id number] [facility] [address], [place] [address]; ([phone]). Patient presents with euthymic mood and congruent affect.
[2022-12-20] MEDS: CHOLECALCIFEROL 1,000 UNIT TABLET (VIT D3) PO SCH (08:28)
[2022-12-20] MEDS: ASPIRIN 81 MG TAB.CHEW PO SCH (08:28)
[2022-12-20] MEDS: DIVALPROEX SODIUM 125 MG CAP.SPRINK PO SCH (08:28)
[2022-12-20] MEDS: cetrizine 10 MG TABLET PO SCH (08:28)
[2022-12-20] MEDS: DOCUSATE SODIUM 100 MG CAPSULE PO SCH (08:28)
[2022-12-20] MEDS: CALCIUM CARBONATE (1250) 500 MG TABLET PO SCH (08:28)
[2022-12-20] MEDS: ENSURE ENLIVE 237 ML LIQUID (VANILLA) PO SCH (08:28)
[2022-12-20 08:29] VITALS: BP 119/63
[2022-12-20] MEDS: AMLODIPINE BESYLATE 5 MG TABLET PO SCH (08:29)
[2022-12-20] MEDS: BENAZEPRIL HCL 20 MG TABLET PO SCH (08:29)
--- NOTE | 2022-12-20 13:10 | NUR ---
RN-DISCHARGE NOTES PATIENT HAD A DISCHARGE ORDER FROM MELISSA VERNON ( COVERING FOR DR. DRISCOLL),DR. MCCLAIN ( DISPATCHER TOW TRUCK) MEDICALLY CLEARED PATIENT FOR DISCHARGE. PATIENT DID NOT VERBALIZE SI/HI,DENIES VISUAL/AUDITORY HALLUCINATIONS AT THE TIME OF DISCHARGE. REPORT WAS GIVEN TO [facility] FINE ARTS INSTRUCTOR. PATIENT'S DTR/DPOA WAS AWARE OF THE DISCHARGE.PATIENT LEFT THE UNIT IN STABLE CONDITION A/O X2-3 AMBULATORY WITH WALKER,NO ACUTE DISTRESS NOTED. [facility]AW TAILER BY AMBULANCE VIA GURNEY WITH TWO STAFF ASSIST. ALL BELONGINGS WAS GIVEN BACK TO THE PATIENT INCLUDING ONE NECKLACE AND CANE AND SOME CLOTHING.
== END 2022-12-20 13:10 | DRG 885 ==
LOC: ER 13:19 → GPS 20:17
PROVIDERS: ADMIT Psychiatry & Neurology Psychiatry; ATTEND Internal Medicine
DX: F33.2 Major depressive disorder, recurrent severe without psychotic features (principal); F03.93 Unspecified dementia, unspecified severity, with mood disturbance; E44.0 Moderate protein-calorie malnutrition; Z68.1 Body mass index [BMI] 19.9 or less, adult; F29 Unspecified psychosis not due to a substance or known physiological condition; I10 Essential (primary) hypertension; E78.5 Hyperlipidemia, unspecified; Z86.73 Personal history of transient ischemic attack (TIA), and cerebral infarction without residual deficits; Z79.899 Other long term (current) drug therapy; Z20.822 Contact with and (suspected) exposure to COVID-19
CPT/HCPCS: 36415; 80048-TC; 80061-TC; 80076-TC; 80164-TC; 82565-TC; 82962-TC; 85025-TC; 87081-TC; 97116-TC; 97530-TC; C9803; G0480